=== PATIENT | male | born 1960 | race Caucasian/White ===

== ENCOUNTER 2020-12-12 10:10 | Inpatient (IN) | payer OTHER ==
[2020-12-12 10:29] VITALS: TEMP 97; BMI 28.7
[2020-12-12] MEDS ORDERED: MAGNESIUM SULF 50% (8.12 MEQ/2 ML-1 GM VIAL) IVPB ONE (11:29)
[2020-12-12 11:36] LABS: BASO % 0.5 % (0-2.0); EOS % 2.7 % (0-4.5); HEMATOCRIT 33.1 % (35.4-49); HEMOGLOBIN 11.3 GM/dL (11.7-16.9); LYMPH % 11.2 % (8-40); MCH 29.9 pg (25.7-33.7); MEAN CELL VOLUME 87.7 fl (80-96); MEAN PLT VOLUME 8.1 fl (7.5-11.1); MONO % 8.5 % (3.8-10.2); NEUT % 77.1 % (42.8-82.8); RBC 3.77 M/mm3 (4.00-5.60)
[2020-12-12 11:44] LABS: INR 1.62 (0.83-1.09); PROTHROMBIN TIME (PATIENT) 19.7 SEC (9.7-13.0)
[2020-12-12 11:45] LABS: VENOUS BASE EXCESS -0.9 mmol/L (-2-2); VENOUS O2 SATURATION 60.2 % (70-80); VENOUS PCO2 44.7 mmHg (38-52); VENOUS PH 7.361 (7.310-7.410)
[2020-12-12 11:47] LABS: ACTIVATED PTT 33.7 SECONDS (25.2-36.5)
[2020-12-12] MEDS ORDERED: MAGNESIUM 1GM/D5W - 1 GM/100 ML IVPB IVPB ONE (11:49)
[2020-12-12 12:07] LABS: CALCIUM 9.8 mg/dL (8.5-10.1)
[2020-12-12 12:08] LABS: ALBUMIN 3.3 g/dl (3.4-5.0); BLOOD UREA NITROGEN 34.1 mg/dL (7-18); MAGNESIUM 2.4 mg/dL (1.8-2.4)
[2020-12-12 12:11] LABS: CREATININE 2.1 mg/dL (0.55-1.3); PHOSPHOROUS 2.6 mg/dL (2.5-4.9)
[2020-12-12 12:12] LABS: BILIRUBIN,TOTAL 0.9 mg/dL (0.2-1)
[2020-12-12 12:16] LABS: N-TERMINAL BNP 283.5 pg/ml (5-125)
[2020-12-12 12:36] LABS: PLATELET COUNT 59 10^3/uL (134-434)
[2020-12-12 14:49] VITALS: BP 124/78; PULSE 66
== END 2020-12-12 14:00 | disposition left against medical advice (07) | DRG 469 ==
LOC: JER 10:10 → JERBED 12:38
PROVIDERS: ADMIT Internal Medicine; ATTEND Internal Medicine
DX: N17.9 Acute kidney failure, unspecified (principal); E11.9 Type 2 diabetes mellitus without complications; I10 Essential (primary) hypertension; F11.20 Opioid dependence, uncomplicated; K74.60 Unspecified cirrhosis of liver; R21 Rash and other nonspecific skin eruption; M79.89 Other specified soft tissue disorders; Z79.4 Long term (current) use of insulin
CPT/HCPCS: 36415; 71045-TC-FY; 80053; 82140; 82550; 82553; 82803; 83735; 83880; 84100; 84484; 85025; 85610; 85730; 93005; 93010; 99285-25; C9803; U0003; U0005

== ENCOUNTER 2022-02-28 08:10 | Emergency (ER) | payer OTHER ==
[2022-02-28 08:20] VITALS: BP 94/56; PULSE 77; RESP 18; TEMP 98.4; BMI 30.9
[2022-02-28] MEDS ORDERED: KETOROLAC TROMETHAMINE 30 MG/1 ML VIAL IM ONE (08:46)
[2022-02-28] MEDS ORDERED: KETOROLAC TROMETHAMINE 30 MG/1 ML VIAL ONE ×2 (08:47→08:55)
== END 2022-02-28 10:31 | disposition home or self-care (01) ==
LOC: JER 08:10 → JERFT 08:10
PROC: 3E0233Z Introduction of Anti-inflammatory into Muscle, Percutaneous Approach (ICD-10-PCS; principal; 2022-02-28)
DX: S93.401A Sprain of unspecified ligament of right ankle, initial encounter (principal); X50.0XXA Overexertion from strenuous movement or load, initial encounter
CPT/HCPCS: 73610-TC-RT-FY; 73630-TC-RT-FY; 82962; 99284-25